=== PATIENT | male | born 1965 | race Caucasian/White ===

== ENCOUNTER 2017-06-10 16:35 | Emergency (ER) | payer BC ==
[~2017-06-10] VITALS: Ht 177.8 cm; Wt 117.9 kg
[~2017-06-10 16:35] MED LIST: CEFD300C3 PO; CELE200C; CLCX200C; EPIN0.3P2 IM; GBPN100C PO; MELO-195; METH4TAB PO; MTF500T PO; TELM40T PO; TELM80TA5; [UNRECOGNIZED DRUG - OTHER] PO
--- NOTE | 2017-06-10 16:42 | ED Back Pain ---
General Stated Complaint: BACK PAIN Source of Information: Patient Exam Limitations: No Limitations History of Present Illness Date Seen by Provider: Jun 10, 2017 Time Seen by Provider: 16:40 Initial Comments To ER with a one-week history of worsening usual low back pain on the left side that radiates down the posterior left thigh terminating at the knee. This has affected his gait. Denies any preceding injury. No loss of bowel or bladder control. No loss of sensation of genitals. He does have a history of cervical radiculopathy that has not as of yet been treated surgically. He's been on Naprosyn Prilosec and prednisone at home without relief. He states that when he is in the sitting position his pain is gone but as soon as he stands upright the pain radiate down the leg. Location: Lumbar Spine Timing/Duration: 1 Week Severity: Moderate Associated Symptoms: lower back pain; No loss of bladder control, No loss of bowel control Allergies and Home Medications Allergies Coded Allergies: gabapentin (Unverified Adverse Reaction, Intermediate, rash, 10/08/12) Home Medications Acetaminophen 500 Mg Tablet, 1,000 MG PO TID, (Reported) Hydrocodone/Acetaminophen 1 Each Tablet, 1 EACH PO Q4H PRN for PAIN-SEVERE Prescribed by: TREVOR BLANKENSHIP on 06/10/17 183 Methylprednisolone 4 Mg Tab.ds.pk, 4 MG PO UD Prescribed by: TREVOR BLANKENSHIP on 06/10/17 1841 Patient Home Medication List Home Medication List Reviewed: Yes Constitutional: see HPI EENTM: see HPI Respiratory: no symptoms reported Cardiovascular: no symptoms reported Genitourinary: no symptoms reported Musculoskeletal: see HPI, back pain Skin: no symptoms reported Psychiatric/Neurological: No Symptoms Reported Past Hbfuxyf-Nbhcyi-Atlokb Hx Patient Social History Recent Foreign Travel: No Contact w/Someone Who Travel: No Immunizations Up To Date Tetanus Booster (TDap): Less than 5yrs Past Medical History Orthopedic Hypertension Reproductive Disorders: No Arthritis Diabetes, Non-Insulin dep Adverse Reaction/Blood Tranf: No Physical Exam Vital Signs Vital Signs - First Documented 06/10/17 16:44 Temp 98.1 Pulse 86 Resp 18 B/P (MAP) 151/96 (114) Pulse Ox 96 Capillary Refill : General Appearance: No Apparent Distress, WD/WN HEENT: PERRL/EOMI, TMs Normal Neck: Full Range of Motion, Normal Inspection Respiratory: Normal Breath Sounds, No Accessory Muscle Use, No Respiratory Distress Gastrointestinal: Normal Bowel Sounds, No Organomegaly, Soft Extremity: Normal Capillary Refill, Normal Inspection Neurologic/Psychiatric: Alert, Oriented x3, No Motor/Sensory Deficits Skin: Normal Color, Warm/Dry Progress/Results/Core Measures My Orders Orders - TREVOR BLANKENSHIP APRN Mri Lumbar Spine W/O Contrast (06/10/17 16:37) Morphine Injection (Morphine Injection (06/10/17 17:00) Medications Given in ED Current Medications Medications Dose Ordered Sig/Benji Route Start Time Stop Time Status Last Admin Dose Admin Morphine Sulfate 8 mg ONCE ONCE IJ 06/10/17 17:00 06/10/17 17:01 DC 06/10/17 17:00 8 MG Vital Signs/I&O 06/10/17 16:44 Temp 98.1 Pulse 86 Resp 18 B/P (MAP) 151/96 (114) Pulse Ox 96 Departure Impression Primary Impression: Lumbar radiculopathy Disposition: HOME, SELF-CARE Condition: Stable Departure-Patient Inst. Decision time for Depature: 18:32 Referrals: NO,LOCAL PHYSICIAN (PCP) Primary Care Physician DAMIAN ZEPEDA MD (Family) Primary Care Physician Patient Instructions: Radiculopathy (DC) Add. Discharge Instructions: 1. Medication as directed 2. Continue the naproxen anti-inflammatories and the Prilosec to protect your stomach. Do not mix alcohol with the hydrocodone. Scripts Methylprednisolone (Medrol) 4 Mg Tab.ds.pk 4 MG PO UD, #1 PKG Prov: TREVOR BLANKENSHIP APRN 06/10/17 Hydrocodone/Acetaminophen (Jeffrey 5-325 Tablet) 1 Each Tablet 1 EACH PO Q4H PRN for PAIN-SEVERE, #15 TAB Prov: TREVOR BLANKENSHIP APRN 06/10/17 TREVOR BLANKENSHIP APRN Jun 10, 2017 16:42
[2017-06-10] MEDS ORDERED: ACET-2267 PO (16:51)
[2017-06-10] MEDS ORDERED: NAPR-1071 PO (16:51)
[2017-06-10] MEDS ORDERED: TELM40T PO (16:51)
[2017-06-10] MEDS ORDERED: PRD50T PO (16:51)
[2017-06-10] MEDS ORDERED: morphine INJ 10 MG/ML 1ML (SYR OR VIAL) IJ ONE (17:00)
--- NOTE | 2017-06-10 18:31 | Diagnostic Imaging Report ---
PROCEDURE: MRI lumbar spine. TECHNIQUE: Multiplanar, multisequence MRI of the lumbar spine was performed without contrast. INDICATION: Left leg pain, back pain, no known discrete injury. COMPARISON: Exam compared with study 02/12/2014. FINDINGS: The lumbar vertebral body heights are maintained. The alignment is anatomic and the marrow signal intensity is normal. The conus appears normal and there is no intrathecal abnormality. Primary abnormality is new broad-based posterolateral protrusion of the L3-L4 disc resulting in severe left neural foraminal stenosis. Disc material more midline results in mild effacement of the ventral thecal sac but only a mild degree of canal stenosis was present. No substantial lateral recess narrowing. The disc at L2-L3 and L4-L5 reveals desiccation and slight circumferential diffuse bulge with mild biforaminal and mild canal stenosis, unchanged. IMPRESSION: New broad-based posterior left lateral disc protrusion at L3-L4 with severe left foraminal stenosis. The remaining levels showed mild spondylosis and mild chronic stenoses, unchanged. Normal alignment. No acute bony abnormality. Dictated by: Dictated on workstation # [id number]
[2017-06-10] MEDS ORDERED: HYDR-757 PO (18:34)
[2017-06-10] MEDS ORDERED: METH4TAB PO (18:41)
[2017-06-10 18:48] VITALS: BP 145/85
== END 2017-06-10 18:48 | disposition home or self-care (01) ==
LOC: EDUNIT# 16:35 → ER 16:36
DX: M54.16 Radiculopathy, lumbar region (principal); I10 Essential (primary) hypertension; E11.9 Type 2 diabetes mellitus without complications; Z79.52 Long term (current) use of systemic steroids
CPT/HCPCS: 72148; 96372

== ENCOUNTER 2017-09-13 13:33 | Outpatient (RCR) | payer BC, OTHER ==
[~2017-09-13 13:33] MED LIST changes: +ACET-2267 PO; +HYDR-757 PO; +NAPR-1071 PO; +PRD50T PO
== END 2017-09-16 10:01 | disposition home or self-care (01) ==
PROVIDERS: ATTEND Orthopaedic Surgery Orthopaedic Surgery of the Spine
DX: M54.5 Low back pain (principal)

== ENCOUNTER 2020-02-01 08:35 | Outpatient (CLI) | payer BC, OTHER ==
[~2020-02-01] VITALS: Ht 177 cm; Wt 113.0 kg
[2020-02-01 08:32] VITALS: BP 184/104
[~2020-02-01 08:35] MED LIST changes: +HYDR-4226 PO; -HYDR-757 PO
[2020-02-01] MEDS ORDERED: EPINEPHrine INJECTION 1 MG/ML AMP IM PRN (08:45)
[2020-02-01] MEDS ORDERED: BAMLANIVIMAB 700 MG in NS 200 ML IV ONE (08:45)
[2020-02-01] MEDS ORDERED: diphenhydrAMINE 50 MG/ML INJ (BENADRYL) IV PRN (08:45)
[2020-02-01 10:16] VITALS: BP 160/99
== END 2020-02-01 11:12 ==
LOC: INFUSION 08:35
PROVIDERS: ATTEND Family Medicine
DX: U07.1 COVID-19 (principal)

== ENCOUNTER 2020-05-16 16:38 | Emergency (ER) | payer BC ==
[~2020-05-16] VITALS: Ht 180 cm; Wt 117.0 kg
--- NOTE | 2020-05-16 16:51 | ED General ---
General Chief Complaint: General Problems/Pain Stated Complaint: R SIDE PAIN Nursing Triage Note: ARRIVED VIA AMB TO ROOM 08 WITH COMPLAINTS OF RIGHT UPPER BACK PAIN THAT STARTED YESTERDAY. Nursing Sepsis Screen: No Definite Risk Source of Information: Patient Exam Limitations: No Limitations History of Present Illness Date Seen by Provider: May 16, 2020 Time Seen by Provider: 16:44 Initial Comments To ER with a 24-hour history of right sided posterior thorax pain that radiates around to the front. He did have some intense nausea on the way here but no vomiting. The nausea is gone now. He has chronic shortness of breath since having Covid couple of months ago. He did have a cough yesterday. No known injury. No rash to the thorax or back. No abdominal pain. Timing/Duration: 1-2 Days Severity: Moderate Associated Systoms: Chest Pain Allergies and Home Medications Allergies Coded Allergies: gabapentin (Unverified Adverse Reaction, Intermediate, rash, 10/08/12) Home Medications Acetaminophen 500 Mg Tablet, 1,000 MG PO TID, (Reported) Methylprednisolone 4 Mg Tab.ds.pk, 4 MG PO UD Prescribed by: TREVOR BLANKENSHIP on 06/10/17 1841 Patient Home Medication List Home Medication List Reviewed: Yes Review of Systems Review of Systems Constitutional: see HPI; No chills, No fever EENTM: see HPI Respiratory: see HPI, cough, short of breath Cardiovascular: no symptoms reported Genitourinary: no symptoms reported Musculoskeletal: no symptoms reported Skin: no symptoms reported Psychiatric/Neurological: No Symptoms Reported Hematologic/Lymphatic: No Symptoms Reported Immunological/Allergic: no symptoms reported Past Jcqrbpq-Wzgrzs-Bzpqrz Hx Patient Social History Alcohol Use: Occasionally Uses Number of Drinks Today: AA Alcohol Beverage of Choice: Beer Smoking Status: Never a Smoker Type Used: Smokeless Tobacco Recent Infectious Disease Expo: No Immunizations Up To Date Tetanus Booster (TDap): Less than 5yrs Past Medical History Surgeries: Yes (left total knee) Orthopedic Respiratory: No Cardiac: Yes (previously treated for htn) Hypertension Neurological: No Reproductive Disorders: No Gastrointestinal: No Musculoskeletal: Yes (PLANTAR FASCITIS) Arthritis Endocrine: Yes Diabetes, Non-Insulin dep Cancer: No Psychosocial: No Integumentary: Yes (had allergic rash 2 years ago) Blood Disorders: No Adverse Reaction/Blood Tranf: No Physical Exam Vital Signs Vital Signs - First Documented 05/16/20 16:40 Temp 36.1 Resp 16 B/P (MAP) 157/90 (112) Pulse Ox 97 O2 Delivery Room Air Capillary Refill : Less Than 3 Seconds Height, Weight, BMI Height: 5'10.00" Weight: 260lbs. oz. 117.259515vx; 36.00 BMI Method:Stated General Appearance: No Apparent Distress, WD/WN Eyes: Bilateral Eye Normal Inspection, Bilateral Eye PERRL, Bilateral Eye EOMI Neck: Full Range of Motion, Normal Inspection Respiratory: No Accessory Muscle Use, No Respiratory Distress Gastrointestinal: Non Tender, Soft Extremity: Normal Capillary Refill, Normal Inspection Neurologic/Psychiatric: Alert, Oriented x3 Skin: Normal Color, Warm/Dry Progress/Results/Core Measures Suspected Sepsis Recent Fever Within 48 Hours: No Infection Criteria Present: Suspected New Infection New/Unexplained Altered Menta: No Sepsis Screen: No Definite Risk SIRS Temperature: Pulse: Respiratory Rate: 16 Laboratory Tests 05/16/20 16:48: White Blood Count 8.0 Blood Pressure 157 /90 Mean: 112 Laboratory Tests 05/16/20 16:48: Creatinine 0.77, Platelet Count 202, Total Bilirubin 0.4 Results/Orders Lab Results Laboratory Tests Test 05/16/20 16:48 05/16/20 17:10 Range/Units White Blood Count 8.0 4.3-11.0 10^3/uL Red Blood Count 4.96 4.30-5.52 10^6/uL Hemoglobin 15.4 13.3-17.7 g/dL Hematocrit 45 40-54 % Mean Corpuscular Volume 91 80-99 fL Mean Corpuscular Hemoglobin 31 25-34 pg Mean Corpuscular Hemoglobin Concent 34 32-36 g/dL Red Cell Distribution Width 12.6 10.0-14.5 % Platelet Count 202 130-400 10^3/uL Mean Platelet Volume 11.1 9.0-12.2 fL Immature Granulocyte % (Auto) 0 % Neutrophils (%) (Auto) 64 42-75 % Lymphocytes (%) (Auto) 22 12-44 % Monocytes (%) (Auto) 11 0-12 % Eosinophils (%) (Auto) 3 0-10 % Basophils (%) (Auto) 0 0-10 % Neutrophils # (Auto) 5.1 1.8-7.8 10^3/uL Lymphocytes # (Auto) 1.7 1.0-4.0 10^3/uL Monocytes # (Auto) 0.9 0.0-1.0 10^3/uL Eosinophils # (Auto) 0.2 0.0-0.3 10^3/uL Basophils # (Auto) 0.0 0.0-0.1 10^3/uL Immature Granulocyte # (Auto) 0.0 0.0-0.1 10^3/uL D-Dimer 0.48 0.00-0.49 UG/ML Sodium Level 140 135-145 MMOL/L Potassium Level 4.0 3.6-5.0 MMOL/L Chloride Level 104 98-107 MMOL/L Carbon Dioxide Level 23 21-32 MMOL/L Anion Gap 13 5-14 MMOL/L Blood Urea Nitrogen 11 7-18 MG/DL Creatinine 0.77 0.60-1.30 MG/DL Estimat Glomerular Filtration Rate > 60 BUN/Creatinine Ratio 14 Glucose Level 206 H 70-105 MG/DL Calcium Level 8.8 8.5-10.1 MG/DL Corrected Calcium 8.6 8.5-10.1 MG/DL Total Bilirubin 0.4 0.1-1.0 MG/DL Aspartate Amino Transf (AST/SGOT) 19 5-34 U/L Alanine Aminotransferase (ALT/SGPT) 42 0-55 U/L Alkaline Phosphatase 65 40-136 U/L Troponin I < 0.028 <0.028 NG/ML Total Protein 7.3 6.4-8.2 GM/DL Albumin 4.2 3.2-4.5 GM/DL Urine Color YELLOW Urine Clarity CLEAR Urine pH 6.0 5-9 Urine Specific [place] 1.025 H 1.016-1.022 Urine Protein NEGATIVE NEGATIVE Urine Glucose (UA) 2+ H NEGATIVE Urine Ketones NEGATIVE NEGATIVE Urine Nitrite NEGATIVE NEGATIVE Urine Bilirubin NEGATIVE NEGATIVE Urine Urobilinogen 1.0 < = 1.0 MG/DL Urine Leukocyte Esterase NEGATIVE NEGATIVE Urine RBC (Auto) TRACE-I NEGATIVE Urine RBC 0-2 /HPF Urine WBC 0-2 /HPF Urine Squamous Epithelial Cells NONE /HPF Urine Crystals NONE /LPF Urine Bacteria NEGATIVE /HPF Urine Casts NONE /LPF Urine Mucus LARGE H /LPF Urine Culture Indicated NO My Orders Orders - TREVOR BLANKENSHIP CLAIMS DIRECTOR Cbc With Automated Diff (05/16/20 16:46) Comprehensive Metabolic Panel (05/16/20 16:46) Ua Culture If Indicated (05/16/20 16:46) Ed Iv/Invasive Line Start (05/16/20 16:46) Fibrin Degradation Products (05/16/20 16:46) Ct Angio Chest W (05/16/20 16:46) Ct Abdomen/Pelvis Wo (05/16/20 16:46) Fentanyl Inj (Sublimaze Injection) (05/16/20 17:00) Ekg Tracing (05/16/20 16:46) Troponin I (05/16/20 16:46) Hydromorphone Injection (Dilaudid Inject (05/16/20 17:45) Iohexol Injection (Omnipaque 350 Mg/Ml 1 (05/16/20 18:00) Received Contrast (Hold Metformin- Contr (05/16/20 18:00) Ns (Ivpb) (Sodium Chloride 0.9% Ivpb Bag (05/16/20 18:00) Medications Given in ED Current Medications Medications Dose Ordered Sig/Benji Route Start Time Stop Time Status Last Admin Dose Admin Fentanyl Citrate 50 mcg ONCE ONCE IVP 05/16/20 17:00 05/16/20 17:01 DC 05/16/20 16:54 50 MCG Iohexol 100 ml ONCE ONCE IV 05/16/20 18:00 05/16/20 18:01 DC 05/16/20 17:49 84 ML Sodium Chloride 100 ml ONCE ONCE IV 05/16/20 18:00 05/16/20 18:01 DC 05/16/20 17:49 80 ML Vital Signs/I&O 05/16/20 16:40 Temp 36.1 Resp 16 B/P (MAP) 157/90 (112) Pulse Ox 97 O2 Delivery Room Air Capillary Refill : Less Than 3 Seconds Blood Pressure Mean: 112 Diagnostic Imaging Diagonstic Imaging: CT Comments NAME: ANNA HERNÁNDEZ MED REC#: [id number] PT STATUS: REG ER : 1965 PHYSICIAN: TREVOR BLANKENSHIP APRN ADMIT DATE: 05/16/20/ER Draft Date of Exam:05/16/20 CT ANGIO CHEST W PROCEDURE: CT angiography of the chest with contrast. TECHNIQUE: Multiple contiguous axial images were obtained through the chest after uneventful bolus administration of intravenous contrast. 3D reconstructed CTA MIP acquisitions were also performed. Auto Exposure Controls were utilized during the CT exam to meet ALARA standards for radiation dose reduction. INDICATION: Right thoracic pain, history of Covid. COMPARISON: Radiographs dated 07/25/[address] of the abdomen dated 05/16/2020 and 07/25/2014. FINDINGS: No significant adenopathy within the chest. No aneurysmal dilatation of the thoracic aorta. The heart is within normal limits in size. No pericardial effusion. No left pleural effusion. Small dependently layering right pleural effusion. Elevation of the right hemidiaphragm. No pneumothorax. Very minimal peripheral reticular and groundglass opacities are identified within the bilateral lower lobes. 1 cm ovoid pulmonary nodule within the right middle lobe is again identified and not significantly changed since 2014, therefore, benign. No additional focal pulmonary nodule or opacity. The trachea is patent. No significant filling defects within the central or segmental pulmonary arteries. No acute osseous abnormality. IMPRESSION: No significant pulmonary embolus. Minimal peripheral reticular and groundglass opacities within the bilateral lung bases. Although these are favored to simply relate to minimal atelectasis, minimal sequelae of Covid infection could appear similar. Benign 1 cm right middle lobe pulmonary nodule. Dictated on workstation # [id number] Dict: 05/16/20 1755 Trans: 05/16/20 1804 [facility] [id number] Interpreted by: DANI THOMAS MD Electronically signed by: Departure Impression Primary Impression: Chest wall pain Disposition: 01 HOME, SELF-CARE Condition: Stable Departure-Patient Inst. Decision time for Depature: 18:20 Referrals: POLO KHALIL MD (PCP/Family) Primary Care Physician Patient Instructions: Acute Pain, Adult Add. Discharge Instructions: All discharge instructions reviewed with patient and/or family. Voiced understanding. Scripts Methocarbamol (Robaxin-750) 750 Mg Tablet 1500 MG PO Q4H PRN for PAIN-SEVERE (8-10), #30 TAB Prov: TREVOR BLANKENSHPI APRN 05/16/20 Hydrocodone/Acetaminophen (Hydrocodone-Acetamin 5-325 mg) 1 Each Tablet 1 TAB PO Q4H PRN for PAIN-MODERATE (5-7), #20 TAB Prov: TREVOR BLANKENSHIP APRN 05/16/20 TREVOR BLANKENSHIP APRN May 16, 2020 16:51
[2020-05-16] MEDS ORDERED: fentaNYL INJ 100 MCG/2 ML AMP IVP ONE (17:00)
[2020-05-16 17:13] LABS: BASOPHILS % (AUTO) 0 % (0-10); EOSINOPHILS # (AUTO) 0.2 10^3/uL (0.0-0.3); EOSINOPHILS % (AUTO) 3 % (0-10); HEMATOCRIT 45 % (40-54); HEMOGLOBIN 15.4 g/dL (13.3-17.7); LYMPHOCYTES # (AUTO) 1.7 10^3/uL (1.0-4.0); LYMPHOCYTES % (AUTO) 22 % (12-44); MEAN CORPUSCULAR HEMOGLOBIN 31 pg (25-34); MEAN CORPUSCULAR HGB CONC 34 g/dL (32-36); MEAN CORPUSCULAR VOLUME 91 fL (80-99); MEAN PLATELET VOLUME 11.1 fL (9.0-12.2); MONOCYTES # (AUTO) 0.9 10^3/uL (0.0-1.0); MONOCYTES % (AUTO) 11 % (0-12); NEUTROPHILS # (AUTO) 5.1 10^3/uL (1.8-7.8); NEUTROPHILS % (AUTO) 64 % (42-75); PLATELET COUNT 202 10^3/uL (130-400)
[2020-05-16 17:14] LABS: BILIRUBIN,URINE NEGATIVE (NEGATIVE); CLARITY,URINE CLEAR; COLOR,URINE YELLOW; GLUCOSE, URINE (UA) 2+ (NEGATIVE); KETONES,URINE NEGATIVE (NEGATIVE); LEUKOCYTE ESTERASE ,URINE NEGATIVE (NEGATIVE); NITRITE,URINE NEGATIVE (NEGATIVE); PROTEIN,URINE NEGATIVE (NEGATIVE)
[2020-05-16 17:23] LABS: BACTERIA,URINE NEGATIVE /HPF; RBC,URINE 0-2 /HPF; WBC,URINE 0-2 /HPF
[2020-05-16 17:25] LABS: ALANINE AMINOTRANSFERASE 42 U/L (0-55); ALBUMIN 4.2 GM/DL (3.2-4.5); ALKALINE PHOSPHATASE 65 U/L (40-136); BILIRUBIN,TOTAL 0.4 MG/DL (0.1-1.0); BUN/CREATININE RATIO 14; CALCIUM 8.8 MG/DL (8.5-10.1); CARBON DIOXIDE 23 MMOL/L (21-32); CHLORIDE 104 MMOL/L (98-107); CREATININE SERUM 0.77 MG/DL (0.60-1.30); GFR ESTIMATED > 60; GLUCOSE 206 MG/DL (70-105); SODIUM 140 MMOL/L (135-145); TOTAL PROTEIN 7.3 GM/DL (6.4-8.2)
[2020-05-16] MEDS ORDERED: HYDROmorphone 2 MG/ML VIAL (DILAUDID) IV ONE (17:45)
--- NOTE | 2020-05-16 17:58 | Diagnostic Imaging Report ---
PROCEDURE: CT abdomen and pelvis without contrast. TECHNIQUE: Multiple contiguous axial images were obtained through the abdomen and pelvis without the use of intravenous contrast. Auto Exposure Controls were utilized during the CT exam to meet ALARA standards for radiation dose reduction. INDICATION: Right thoracic pain, history of Covid. COMPARISON: 07/25/[address] of the chest dated 05/16/2020. FINDINGS: See separately dictated CT of the chest from the same date for findings within the chest itself. Diffusely decreased density of the liver. Otherwise, the unenhanced liver is unremarkable. Mild elevation of the right hemidiaphragm. The unenhanced spleen is unremarkable. The adrenal glands are unremarkable. The pancreas is unremarkable. Bilateral kidneys and ureters are unremarkable. No aneurysmal dilatation of the abdominal aorta. The stomach is mildly distended with ingested contents. The appendix is unremarkable. Mild mural thickening of the urinary bladder, though the urinary bladder is not optimally distended. Mild colonic diverticulosis without CT evidence of diverticulitis. Tiny umbilical hernia. No evidence of bowel obstruction or pneumatosis. No significant adenopathy, free air, or free fluid within the abdomen or pelvis. Bilateral pars intra-articularis defects of L5 with minimal grade 1 anterolisthesis of L5 on S1. Significant degenerative changes are noted within the lower lumbar spine with disc osteophyte complexes present at the L3-L4 level with resulting central canal stenosis. Bilateral neural foraminal stenosis is also present. No acute osseous abnormality. IMPRESSION: Mild mural thickening of the urinary bladder. This may relate to cystitis though may simply relate to poor distention. Recommend correlation with urinary analysis. Scattered osseous degenerative changes without acute osseous abnormality with resulting central canal and neural foraminal stenosis within the lumbar spine. Fatty infiltration of the liver. Additional findings as above. Dictated by: Dictated on workstation # [id number]
[2020-05-16] MEDS ORDERED: HOLD METFORMIN - RECEIVED CONTRAST 20 ML VIAL IV SCH (18:00)
[2020-05-16] MEDS ORDERED: IOHEXOL 350 MG/ML 100 ML (OMNIPAQUE 350) VIAL IV ONE (18:00)
[2020-05-16] MEDS ORDERED: NS 100 ML (IVPB) BAG IV ONE (18:00)
--- NOTE | 2020-05-16 18:04 | Diagnostic Imaging Report ---
PROCEDURE: CT angiography of the chest with contrast. TECHNIQUE: Multiple contiguous axial images were obtained through the chest after uneventful bolus administration of intravenous contrast. 3D reconstructed CTA MIP acquisitions were also performed. Auto Exposure Controls were utilized during the CT exam to meet ALARA standards for radiation dose reduction. INDICATION: Right thoracic pain, history of Covid. COMPARISON: Radiographs dated 07/25/[address] of the abdomen dated 05/16/2020 and 07/25/2014. FINDINGS: No significant adenopathy within the chest. No aneurysmal dilatation of the thoracic aorta. The heart is within normal limits in size. No pericardial effusion. No left pleural effusion. Small dependently layering right pleural effusion. Elevation of the right hemidiaphragm. No pneumothorax. Very minimal peripheral reticular and groundglass opacities are identified within the bilateral lower lobes. 1 cm ovoid pulmonary nodule within the right middle lobe is again identified and not significantly changed since 2014, therefore, benign. No additional focal pulmonary nodule or opacity. The trachea is patent. No significant filling defects within the central or segmental pulmonary arteries. No acute osseous abnormality. IMPRESSION: No significant pulmonary embolus. Minimal peripheral reticular and groundglass opacities within the bilateral lung bases. Although these are favored to simply relate to minimal atelectasis, minimal sequelae of Covid infection could appear similar. Benign 1 cm right middle lobe pulmonary nodule. Dictated by: Dictated on workstation # [id number]
[2020-05-16] MEDS ORDERED: METH-313 PO (18:22)
[2020-05-16] MEDS ORDERED: ACHD5005 PO (18:22)
[2020-05-16 18:28] VITALS: BP 157/90
== END 2020-05-16 18:28 | disposition home or self-care (01) ==
LOC: EDUNIT# 16:38 → ER 16:40
DX: R07.89 Other chest pain (principal); I10 Essential (primary) hypertension; E11.9 Type 2 diabetes mellitus without complications; Z86.16 Personal history of COVID-19
CPT/HCPCS: 36415; 71275; 74176; 80053; 81000; 84484; 85025; 85379; 93005

== ENCOUNTER → 2021-03-06 | Outpatient (CLI) | payer BC ==
[~2021-03-06] MED LIST changes: +ACHD5005 PO; +CATHETER FLUSH 10 ML SYR IV PRN; +HOLD METFORMIN - RECEIVED CONTRAST 20 ML VIAL IV SCH; +IOHEXOL 350 MG/ML 100 ML (OMNIPAQUE 350) VIAL IV ONE; +METH-313 PO; +NS 100 ML (IVPB) BAG IV ONE
[2021-03-06 09:37] LABS: CREATININE SERUM 0.87 MG/DL (0.60-1.30)
--- NOTE | 2021-03-06 11:55 | Diagnostic Imaging Report ---
PROCEDURE: CT neck soft tissue with contrast. TECHNIQUE: Multiple contiguous axial images were obtained through the neck after the administration of contrast. Auto Exposure Controls were utilized during the CT exam to meet ALARA standards for radiation dose reduction. INDICATION: Neck pain. COMPARISON: MRI of the cervical spine from 02/12/2014. FINDINGS: The airway is widely patent. There is no abnormal soft tissue thickening at the level of the palatine or lingual tonsils. The epiglottis is normal in appearance. No abnormality in the paraglottic space. True vocal folds are grossly normal. The hyoid bone and thyroid cartilage is unremarkable. No retropharyngeal fluid collection. No cervical lymphadenopathy. The parotid, submandibular and thyroid glands are normal. Lung apices are clear. Visualized aspects of the brain are unremarkable. Paranasal sinuses and mastoid air cells are clear. Orbits are normal in appearance. No skull base mass is appreciated. Straightening of the cervical spine may be positional. At C5-C6, there appears to be a small disc protrusion and uncovertebral hypertrophy resulting in mild spinal stenosis and [id number] bilateral neuroforaminal narrowing. IMPRESSION: 1. No soft tissue abnormality within the neck. 2. Focally advanced degenerative disc disease at C5-C6 where disc protrusion and uncovertebral joint hypertrophy result in mild spinal stenosis and [id number] bilateral neuroforaminal narrowing. Dictated by: Dictated on workstation # [id number]
== END ==
LOC: RAD 10:15
PROVIDERS: ATTEND Otolaryngology Otolaryngology/Facial Plastic Surgery
DX: M50.322 Other cervical disc degeneration at C5-C6 level (principal); M48.02 Spinal stenosis, cervical region; M47.812 Spondylosis without myelopathy or radiculopathy, cervical region; M50.222 Other cervical disc displacement at C5-C6 level
CPT/HCPCS: 36415; 70491; 82565; 84520

== ENCOUNTER → 2021-10-07 | Outpatient (CLI) | payer BC ==
[~2021-10-07] MED LIST changes: -CATHETER FLUSH 10 ML SYR IV PRN; -HOLD METFORMIN - RECEIVED CONTRAST 20 ML VIAL IV SCH; -IOHEXOL 350 MG/ML 100 ML (OMNIPAQUE 350) VIAL IV ONE; -NS 100 ML (IVPB) BAG IV ONE
--- NOTE | 2021-10-07 17:21 | Diagnostic Imaging Report ---
PROCEDURE: US carotid duplex, bilateral. TECHNIQUE: Multiple real-time grayscale images were obtained over the carotid arteries in various projections, bilaterally. Additional spectral analysis and color Doppler duplex images were also obtained. INDICATION: Facial paresthesia Duplex ultrasound of the carotid bifurcations shows a small amount of atherosclerotic plaque at the carotid bulbs. The velocities and waveforms appear normal at both carotid bifurcations. Both vertebral arteries are patent with antegrade flow. IMPRESSION: Mild atherosclerotic changes of the carotid bifurcations. There is no hemodynamically significant stenosis. Parameters based on the consensus panel Quinonez-Scale and Doppler ultrasound criteria published December 2002, Radiology, Volume 229. DOPPLER (peak systolic velocity M/S Right Left CCA .81 1.1 ICA Proximal .81 .69 ICA Mid .81 .61 ICA Distal .53 .54 RATIO 1.0 .64 ECA .79 .81 VERT .24 .44 Dictated by: Dictated on workstation # [id number]
== END ==
LOC: RAD 14:54
PROVIDERS: ATTEND Specialist
DX: I65.23 Occlusion and stenosis of bilateral carotid arteries (principal)
CPT/HCPCS: 93880